=== PATIENT | female | born 1990 | race Caucasian/White ===

== ENCOUNTER 2018-06-10 06:50 | Inpatient (IN) | payer OTHER, SELFPAY ==
[2018-06-10 05:54] VITALS: BMI 28.7
[2018-06-10] MEDS: Lactated Ringers 1,000 ML 50 ML IV ×3 (07:00→10:30)
[2018-06-10 07:24] LABS: Hematocrit 37.7 % (37-47); Mean Corp Hgb Conc 34.5 g/gl (32-36); Mean Corpuscular Hgb 31.6 pg (27.0-32.0); Mean Corpuscular Volume 91.7 fL (81-99); Mean Platelet Vol. 9.4 fl (6.2-12.0); Platelet Count 271 K/mm3 (150-450); RBC Distribution Width CV 12.3 % (11.6-14.6); RBC Distribution Width SD 41.2 fl (35.1-43.9); Red Blood Count 4.11 M/mm3 (4.2-5.4); White Blood Count 9.4 K/mm3 (4.4-11.0)
[2018-06-10 07:26] LABS: Scan Indicated on CBC? Y/N NO
[2018-06-10] MEDS: fentaNYL-bupivacaine (epidural) 100 ML BAG EPIDURAL ×2 (07:50→12:07)
--- NOTE | 2018-06-10 08:44 | PCM.HP.OB ---
- Problem List (1) Rh negative state in antepartum period Status: Acute (2) Allergy-induced asthma Status: Acute Qualifiers: Asthma severity: mild Asthma persistence: intermittent Asthma complication type: uncomplicated Qualified Code(s): J45.20 - Mild intermittent asthma, uncomplicated History Date of Admission: 06/10/18 Final MOO: 06/13/18 Final MOO Source: US <20 weeks Gestational age: 39 Weeks and 4 Days History of this : This is a 27 year-old, G [1], P [0], at 39+4 weeks gestational age presenting to triage for labor assessment following onset of contractions last night. Contractions are now 2-5 minutes apart and becoming stronger. Patient denies SROM, VB or DFM. Allergies Anesthetics - Amide Type Allergy (Verified 06/10/18 06:08) Vomiting dental anesthesia Home Medications: Home Medications Albuterol Sulfate [Proair Hfa] 8.5 gm IH PRN PRN 06/10/18 Famotidine [Pepcid] 20 mg PO BID 06/10/18 Ferrous Sulfate [Slow Fe] 45 mg PO DAILY 06/10/18 Hydrocortisone 2.5% Crm 1 applicatio TOPICAL QHS 06/10/18 Levocetirizine Dihydrochloride [Xyzal] 5 mg PO DAILY 06/10/18 Montelukast [Singulair] 10 mg PO DAILY 06/10/18 Qeh163/FA/Omega3/Dha/Fish Oil [ Gummies] 2 each PO DAILY 06/10/18 Smoking Status: Never smoker Alcohol: None Number of Fetus(es): 1 Heart Tracing: FHT baseline 125, moderate variability, + accels, no decels TOCO Analysis: Ctx q 2-5 minutes, palpating moderately strong History Past Pregnancies: Past Pregnancies Delivery Date Name GA/Weeks Outcome Route Weight Infant Gender Labor Length Anesthesia Delivery Location Provider FOB Labs: O neg, Abs Neg, Rubella Immune, HIV Neg, HepBsAg Neg, Syphilis Neg, GBS Neg, H/H = 11.1/32.6, 1 hour GCT = 95, Urine Culture and Tox Neg, GC/CT Neg Expected Delivery Method: Spontaneous Vaginal Describe any other labor & delivery plans:: Patient plans for epidural pain management Number of Visits: 13 Review of Systems Constitutional: Denies: Chills, Fever, Weight Change HEENT: Denies: Head Aches, Sinus Congestion, Sinus Drainage Cardiovascular: Denies: Chest Pain, Palpitations Respiratory: Denies: Cough, Shortness of breath at rest, Sputum production Gastrointestinal: Denies: Abdominal Pain, Nausea, Vomiting Genitourinary: Denies: Dysuria Gynecological: Denies: Vaginal bleeding, Vaginal discharge Musculoskeletal: Denies: Joint Pain, Joint Tenderness Skin: Denies: Rash, Wounds Neurological: Denies: Numbness, Tingling, Focal weakness Psychiatric: Denies: Anxiety, Depression, Homicidal Ideations, Suicidal Ideations Hematologic/ Lymphatic: Denies: Easy Bruising, Easy Bleeding Physical Exam Vitals: See nursing assessment for vital signs - patient is afebrile and normotensive General: Alert, Oriented x3, No apparent distress HEENT: Atraumatic, Normocephalic. 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 Negative for: Vulvar lesions Estimated gestational size: Appropriate for gestational size Presentation: Cephalic Cervix Dilation (cm): 4 - Per RN exam - change from 3cm on initial exam Station: -2 Effacement (%): 90 Assessment/Plan All Active Problems Rh negative state in antepartum period (Acute) Allergy-induced asthma (Acute) This is a 27 year-old, G [1], P [0], at 39+4 weeks gestational age, Spontaneous Labor, Category I FHT. P: 1) Admit patient - start IV, draw admission labs, give LR fluid bolus 2) Epidural on request 3) Expectant management at this time 4) Dr. Slava MONTGOMERY OB back-up aware of admission and plan of care Didi Huerta APRN-BORA
[2018-06-10] MEDS: Famotidine 20 MG Tablet PO ×2 (11:09→23:47)
--- NOTE | 2018-06-10 11:48 | PCM.PN.OB ---
Patient Problems: Active and Suspected Problems Rh negative state in antepartum period (Acute) Allergy-induced asthma (Acute) Subjective: Patient comfortable with epidural. Patient reports some increased pelvic pressure. On last nursing exam patient was 8cm/90/0 and then 9/90/-0. Patient is requesting AROM to help with labor progression. Objective: FHT baseline 130, moderate variability, + accels, no decels Ctx q 2-3 minutes, palpate strong SVE = 9/100/+1 with BBOW, AROM for clear fluid. After AROM, SVE = 9/100/0 - Physical Exam Weight: 191 lb 12.835 oz Body Mass Index (BMI) 28.7 Intake and Output for Last 24 Hours 06/08/18 06/09/18 06/10/18 23:59 23:59 23:59 Intake Total 2180 / 2180 Output Total 175 / 175 Balance 2004 Laboratory Tests Past 24 Hrs 06/10/18 06/10/18 06/10/18 07:00 07:00 07:00 WBC 9.4 RBC 4.11 L Hgb 13.0 Hct 37.7 MCV 91.7 MCH 31.6 MCHC 34.5 RDW 12.3 RDW Differential 41.2 Plt Count 271 MPV 9.4 Blood Type O NEGATIVE Antibody Screen Not Reportable NEGATIVE Medical Necessity - Tobacco Use Smoking Status: Never smoker Assessment/Plan All Active Problems Rh negative state in antepartum period (Acute) Allergy-induced asthma (Acute) A: 27 y/o @ 39.4wks, Transition Stage of Labor, Category I FHT P: 1) Continue expectant management 2) Start pushing once complete with maternal urge 3) Anticipate 4) Dr. Pedersen updated re: patient status Didi Huerta APRN-BORA
[2018-06-10] MEDS: Ondansetron 4 MG/2 ML Vial IV (12:07)
[2018-06-10] MEDS: Oxytocin 30 units/NS 500 ml 30 UNITS/500 ML IV.SOLN 334 UNITS IV (14:35)
--- NOTE | 2018-06-10 14:56 | PCM.OB.VAG ---
- Problem List (1) Rh negative state in antepartum period Status: Acute (2) Allergy-induced asthma Status: Acute Qualifiers: Asthma severity: mild Asthma persistence: intermittent Asthma complication type: uncomplicated Qualified Code(s): J45.20 - Mild intermittent asthma, uncomplicated Vaginal Delivery Maternal Presentation: Active Labor Amniotic Membrane Rupture Type: Artificial Amniotic Fluid Description: Clear Final MOO: 06/13/18 Gestational age: 39 Weeks and 4 Days Date of Procedure: 06/10/18 Pre-Operative Diagnosis: Active Labor Post-Operative Diagnosis: of Viable Girl Surgery/ Procedure Performed: Spontaneous Vaginal Delivery Anesthesiologist: Thomas Taylor Type of Anesthesia: Epidural Description of Procedure: Patient found to be C/C/0 station, trial of pushing started and patient easily moved baby down to +2 station. Patient pushed uneventfully to over intact perineum at 1431. head delivered OA, restituted to MELVI then to LOT. Shoulders easily came spontaneously followed by body. Infant placed on maternal abdomen where baby was dried and stimulated. Mouth and nose bulb suctioned. Umbilical cord clamped and cut soon after per maternal preference. Infant with spontaneous cry and respirations, Apgars 8 and 9. weight pending. Cord blood collected. Placenta then delivered spontaneously via Young mechanism with shredded trailing membranes. Placenta intact with 3VC. FF midline 3FB below umbilicus to massage. IV pitocin infusing for active management of 3rd stage per protocol. EBL = 150cc. Upon inspection of vaginal vault, bilateral periurethral lacerations noted with good hemostasis. To allow for proper healing, Rt. side periurethral lac repaired in the usual fashion using 3-0 Rapide suture under epidural analgesia. Sponge and needle count correct. Vaginal sweep negative. Bonding and [id number] initiated. Patient unsure of feeding plans - will consult remediation consultant to assist with latch and to provide teaching. Didi Huerta PROFESSIONAL FIGHTER-CNM Presentation: Vertex Placental Delivery Description: Spontaneous Placenta Disposition: [facility] Cord Vessel Description: 3 Vessels Cord Entanglement: None Estimated Blood Loss: 150 Infant A gender: Female (1 minute): 8 (5 minute): 9 Episiotomy Description: None Laceration: Periurethral Extnsion/lac - Bilateral with extension to periclitoral area, 1st degree Medications given after delivery: IV Pitocin Complications: None
[2018-06-10] MEDS: Oxytocin 30 units/NS 500 ml 30 UNITS/500 ML IV.SOLN 167 UNITS IV (15:05)
--- NOTE | 2018-06-10 15:07 | PCM.DCVAG ---
Discharge Diet: No Restrictions Discharge Activity: Return to Normal Activity, May not drive while taking narcotic pain medications., May Shower May resume sexual activity in: 4-6 weeks Additional Activity Instructions:: Nothing in the vagina for 4-6 weeks. You may return to work/school in 6 weeks. Call your doctor if your incision/area has: Continuous Slow Oozing, Sudden Increased Bleeding, Increased Pain/ Swelling, Increased Redness, Foul Smelling Discharge Call your doctor if you observe: Fever of 101 or Higher, Inability to urinate, Inability to have a bowel movement, Using more than one pad per hour Additional Instructions: If you experience any of the following, contact your healthcare provider. Bleeding that soaks a pad every hour for 2 hours Fever 100.4 or higher Unrelieved incision or abdominal pain Swelling, redness, discharge or bleeding from your incision or episiotomy site Your incision begins to separate Problems urinating (including inability to urinate or burning while urinating). Visual changes Severe headache Flu-like symptoms Pain or redness in one of both of your breasts Pain, warmth, tenderness or swelling in your legs, especially the calf area Frequent nausea and vomiting Symptoms of depression or anxiety If you experience any of the following, call 911 or go to the nearest Emergency Room. Chest pain Problems breathing Seizure activity Partial or complete paralysis of a body part, slurred speech, weakness or drooping of the face, or a sudden inability to walk or hold your balance Allergies/Adverse Reactions: Allergies Anesthetics - Amide Type Allergy (Verified 06/10/18 06:08) Vomiting dental anesthesia Medications to take at Discharge Albuterol Sulfate [Proair Hfa] 8.5 gm IH Q4H PRN PRN 06/10/18 Famotidine [Pepcid] 20 mg PO BID 06/10/18 Ferrous Sulfate [Slow Fe] 45 mg PO DAILY 06/10/18 Hydrocortisone 2.5% Crm 1 applicatio TOPICAL QHS 06/10/18 Levocetirizine Dihydrochloride [Xyzal] 5 mg PO DAILY 06/10/18 Montelukast [Singulair] 10 mg PO DAILY 06/10/18 [id number]/FA/Omega3/Dha/Fish Oil [ Gummies] 2 each PO DAILY 06/10/18 Please Follow Up With: Didi Huerta CNM - 2 weeks and 6 week PP visits When: Call to make an appointment with your doctor in 6 weeks. If you had elevated Blood Pressure or 4th degree laceration you will need to be seen in 2 weeks. Primary Care Physician: Vivek James DO [Primary Care Provider] - Test Results: Test results from this visit will be discussed in further detail at your follow-up appointment, if applicable.
[2018-06-10 19:52] VITALS: BP 114/62; PULSE 79; RESP 18; TEMP 36.5
--- NOTE | 2018-06-10 23:00 | NURSING ---
Taking over pt care at this time.
[2018-06-10] MEDS: Montelukast 10 MG Tablet PO (23:48)
[2018-06-10] MEDS: Loratadine 10 MG Tablet 5 MG PO (23:48)
[2018-06-10 23:59] VITALS: BP 103/64; PULSE 77; RESP 18; TEMP 36.7; O2SAT 98
[2018-06-10] MEDS: Ibuprofen 600 MG Tablet PO (23:59)
[2018-06-11 04:40] VITALS: BP 113/69; PULSE 77; RESP 18; TEMP 36.6; O2SAT 96
[2018-06-11] MEDS: Ibuprofen 600 MG Tablet PO ×3 (06:57→20:39)
[2018-06-11 07:56] VITALS: BP 112/75; PULSE 72; RESP 16; TEMP 36.4; O2SAT 97
--- NOTE | 2018-06-11 08:41 | PCM.PN.OB ---
Patient Problems: Active and Suspected Problems Rh negative state in antepartum period (Acute) Allergy-induced asthma (Acute) Subjective: pain well controlled, average lochia, no N/V - Physical Exam General: Alert, Cooperative, No apparent distress Vital Signs Temp Pulse Resp BP Pulse Ox 97.6 F L 72 16 112/75 97 06/11/18 07:56 06/11/18 07:56 06/11/18 07:56 06/11/18 07:56 06/11/18 07:56 Oxygen Delivery Method Room Air Weight: 87 kg Body Mass Index (BMI) 28.7 Intake and Output for Last 24 Hours 06/09/18 06/10/18 06/11/18 23:59 23:59 23:59 Intake Total 3848 / 3848 Output Total 2525 / 2525 Balance 1323 / 1323 Laboratory Tests Past 24 Hrs 06/10/18 06/10/18 06/10/18 07:00 07:00 16:40 Blood Type O NEGATIVE Antibody Screen Not Reportable NEGATIVE Screen NEGATIVE Baby's Blood Type A POSITIVE Baby's EMMA POSITIVE Medical Necessity - Tobacco Use Smoking Status: Never smoker Assessment/Plan All Active Problems Rh negative state in antepartum period (Acute) Allergy-induced asthma (Acute) PPD#1 doing well likely home tomorrow, may d/c today if patient desires and ok w/ peds
[2018-06-11] MEDS: Senna/Docusate Sodium 1 Tablet PO (08:54)
[2018-06-11] MEDS: Famotidine 20 MG Tablet PO ×2 (10:02→17:08)
--- NOTE | 2018-06-11 12:05 | NURSING ---
8012 While rounding Mom states that pumping is still going well. Mom is interested in a home pump. Mom encouraged to call if any further questions or concerns with her pumping. Lotus ÁLVAREZ
--- NOTE | 2018-06-11 12:11 | NURSING ---
Agree with charting per ACole RN
[2018-06-11 13:50] VITALS: BP 108/65; PULSE 75; RESP 14; TEMP 36.2; O2SAT 99
--- NOTE | 2018-06-11 14:22 | NURSING ---
Pt. has a bilateral 1 degree periclitoral laceration that is well approximated with minimal swelling.
[2018-06-11] MEDS: Loratadine 10 MG Tablet 5 MG PO (17:08)
[2018-06-11 20:10] VITALS: BP 119/75; PULSE 69; RESP 16; TEMP 36.3; O2SAT 99
[2018-06-11] MEDS: Montelukast 10 MG Tablet PO (20:39)
[2018-06-12 02:10] VITALS: BP 99/49; PULSE 70; RESP 16; TEMP 36.4; O2SAT 95
--- NOTE | 2018-06-12 08:56 | PCM.PN.OB ---
Patient Problems: Active and Suspected Problems Rh negative state in antepartum period (Acute) Allergy-induced asthma (Acute) Subjective: Doing well per patient and nursing staff. Ambulating and taking PO without difficulty. Voiding and passing flatus. Motrin for pain. Pumping breast and bottle feeding. Planning D/C home today. Declines LARC. Denies headache, visual changes, chest pain, shortness of breath, increased vaginal bleeding/clots, or leg pain. - Physical Exam General: Alert, Oriented x3, Cooperative HEENT: Atraumatic, Normocephalic Lungs: Clear to auscultation, Normal air movement, No rhonchi, No wheeze Cardiovascular: Regular rate, Regular Rhythm, No murmurs Abdomen: Bowel Sounds Present, Non Tender, - - Fundus firm 2 below U Extremities: No edema, - - Joann's negative Psych/Mental Status: Normal Affect, Appropriate Vital Signs Temp Pulse Resp BP Pulse Ox 97.6 F L 70 16 99/49 L 95 06/12/18 02:10 06/12/18 02:10 06/12/18 02:10 06/12/18 02:10 06/12/18 02:10 Oxygen Delivery Method Room Air Weight: 191 lb 12.835 oz Body Mass Index (BMI) 28.7 Intake and Output for Last 24 Hours 06/10/18 06/11/18 06/12/18 23:59 23:59 23:59 Intake Total 3848 / 3848 Output Total 2525 / 2525 Balance 1323 / 1323 Medical Necessity - Tobacco Use Smoking Status: Never smoker Assessment/Plan All Active Problems Rh negative state in antepartum period (Acute) Allergy-induced asthma (Acute) A: PPD #2 P: 1) Routine and discharge instructions given. 2) Follow up in 2 weeks and 6 weeks for routine visits. 3) D/C home today.
[2018-06-12] MEDS: Ibuprofen 600 MG Tablet PO (09:14)
[2018-06-12 20:24] VITALS: BP 124/64; PULSE 76; RESP 18; TEMP 36.3; O2SAT 97
== END 2018-06-12 12:30 | disposition home or self-care (01) | DRG 775 ==
LOC: WPOUT 06:52
PROVIDERS: Obstetrics & Gynecology; Admitting Provider Obstetrics & Gynecology; Family Provider Student in an Organized Health Care Education/Training Program; PCP Student in an Organized Health Care Education/Training Program; Visit Provider Obstetrics & Gynecology
DX: O36.0130 Maternal care for anti-D [Rh] antibodies, third trimester, not applicable or unspecified (principal); O99.52 Diseases of the respiratory system complicating childbirth; J45.998 Other asthma; O71.82 Other specified trauma to perineum and vulva; Z3A.39 39 weeks gestation of pregnancy; Z37.0 Single live birth
CPT/HCPCS: 59050; 85027; 85461; 86850; 86900; 90384; 99218; J7120; G0378; J2405; J2790

== ENCOUNTER → 2020-09-30 08:47 | Outpatient (CLI) | payer OTHER, SELFPAY ==
[2020-09-30 09:15] LABS: Internal QC Validated? YES +Cl - CLEAR BKGD; Pregnancy, Serum, hCG Quali. NEGATIVE Negative
[2020-09-30 09:18] LABS: Anion Gap 6 (5-15); BUN 14 mg/dL (7-18); BUN/Creat Ratio 15.8 RATIO (10-20); Calcium,Total 8.9 mg/dL (8.5-10.1); Chloride 103 mmol/L (98-107); Creatinine, Serum 0.89 mg/dL (0.55-1.02); EST Glomerular Filtration Rate 79 mL/min (>60); Est Glom Filt Rate - Afr Amer 95 mL/min (>60); Glucose 83 mg/dL (74-106); Potassium 3.9 mmol/L (3.5-5.1); Sodium Level 138 mmol/L (136-145)
--- NOTE | 2020-09-30 12:38 | PCM.TILTTABL ---
- Summary Pre Test Resting HR: 76 Pre Test Resting BP: 102/51 Minimum Test HR: 70 Maximum Test HR: 100 Minimum Test BP: 0/0 Reason for Test Termination: Syncope Physician Tilt Table Report - Patient's Physicians Primary Care Physician: Vivek James Manager [employer]: Roman Lao Indications/Diagnosis: Syncope Procedure Comments: The patient was brought to the noninvasive lab for evaluation. The heart rate was noted to be 76 bpm with an initial blood pressure 102/51 mmHg. The patient was put in the upright tilt table position. Patient was set up for 20 minutes. Heart rate remained stable and the patient started complaining of feeling hot feeling flushed and blood pressure dropped and patient passed out. Heart rate really did not change. Afterwards the patient was recovered with IV fluids with blood pressures peaking at 114 and the lowest heart rate being 71 bpm. Summary: Inconclusive tilt table test with evidence of syncope. No features of vasodepressor or postural orthostatic tachycardia noted.
[2020-09-30 12:45] VITALS: BP 0/0; BP 102/51
== END ==
PROVIDERS: PCP Student in an Organized Health Care Education/Training Program; Referring Provider Student in an Organized Health Care Education/Training Program; Visit Provider Student in an Organized Health Care Education/Training Program
DX: R42 Dizziness and giddiness (principal); R00.0 Tachycardia, unspecified; I49.8 Other specified cardiac arrhythmias
CPT/HCPCS: 36415; 80048; 84703; 93660; J7040; A4216

== ENCOUNTER 2021-02-08 10:32 | Day surgery (SDC) | payer OTHER, SELFPAY ==
[2021-01-10 15:43] VITALS: BMI 27.1
[2021-02-03 13:14] VITALS: BMI 27.3
[2021-02-07 11:59] LABS: Hematocrit 42.8 % (37-47); Hemoglobin 14.2 g/dL (12.0-15.0); Mean Corp Hgb Conc 33.2 g/dL (32-36); Mean Corpuscular Hgb 30.3 pg (27.0-32.0); Mean Corpuscular Volume 91.3 fL (81-99); Mean Platelet Vol. 9.3 fl (6.2-12.0); Platelet Count 380 K/mm3 (150-450); RBC Distribution Width CV 11.9 % (11.6-14.6); RBC Distribution Width SD 39.5 fl (35.1-43.9); Red Blood Count 4.69 M/mm3 (4.2-5.4); White Blood Count 6.4 K/mm3 (4.4-11.0)
[2021-02-08] VITALS (7 sets, daily range): BP systolic 92–113; BP diastolic 60–83; PULSE 63–71; RESP 16–18; TEMP 36.2–36.8; O2SAT 98–100; BMI 27.2
--- NOTE | 2021-02-08 09:25 | PCM.HPOB.BLA ---
- Problem List (1) Abnormal uterine bleeding Status: Chronic Comment: breakthrough bleeding on latrell/apri, nl labs and US at [facility]. failed two ocps and still persistent recommend d and c hysteroscopy History and Physical Date of Admission: 02/08/21 Intake Vital Signs 01/07/21 Height 5 ft 3 in 01/07/21 Weight: 235 lb 01/07/21 BMI 41.6 Intake Visit Reasons: AUB, ref by Dr. Amato Chief Complaint: AUB Communications Strategist Required: No Is patient in pain?: No Allergies pregabalin [From Lyrica] Allergy (Severe, Verified 01/07/21 14:59) Shortness of breath Steroids Allergy (Intermediate, Uncoded 01/07/21 14:59) Vomiting Medications fentanyl 25 mcg/hr transdermal patch 1 patch TRANSDERMAL Q72H 02/21/18 [History Confirmed 01/07/21] hydrocodone 7.5 mg-acetaminophen 325 mg tablet 1 tab PO TID PRN tab 02/21/18 [History Confirmed 01/07/21] incontinence pad, liner, disp See Dose Instructions .ROUTE .MEDSUPPLY #200 ea 02/21/18 [Rx Confirmed 01/07/21] multivitamin 1 tab PO QAM 02/21/18 [History Confirmed 01/07/21] tizanidine 4 mg capsule 4 mg PO TID PRN 02/21/18 [History Confirmed 01/07/21] cholecalciferol (vitamin D3) 125 mcg (5,000 unit) capsule 5,000 unit PO QDAY 02/26/18 [History Confirmed 01/07/21] ferrous sulfate 324 mg (65 mg iron) tablet,delayed release 324 mg PO QDAY tab 02/26/18 [History Confirmed 11/03/20] melatonin 5 mg capsule mg PO cap 08/26/18 [History Confirmed 01/07/21] blood pressure monitor See Rx Instructions .ROUTE .MEDSUPPLY #1 ea 08/06/19 [Rx Confirmed 11/03/20] fluorometholone 0.1 % eye drops,suspension 1 drp OPHTHALMIC Q12H ml 08/06/19 [History Confirmed 01/07/21] gabapentin 300 mg capsule 300 mg PO TID 08/06/19 [History Confirmed 01/07/21] cyclosporine 0.05 % eye drops 1 drp OPHTHALMIC Q12H 01/27/20 [History Confirmed 01/07/21] furosemide 20 mg tablet See Rx Instructions .ROUTE .COMPLEX #90 tablet 05/04/20 [Rx Confirmed 11/03/20] potassium chloride 10 mEq tablet,extended release 10 meq PO QDAY #90 tab 05/26/20 [Rx Confirmed 01/07/21] pravastatin 40 mg tablet 40 mg PO QDAY #90 tab 06/01/20 [Rx Confirmed 01/07/21] verapamil 120 mg 24 hr capsule,extended release 120 mg PO QDAY #90 cap 10/21/20 [Rx Confirmed 01/07/21] fesoterodine 4 mg tablet,extended release 24 hr 4 mg PO DAILY 11/03/20 [History Confirmed 01/07/21] duloxetine 60 mg capsule,delayed release 120 mg PO QDAY #180 cap 11/19/20 [Rx Confirmed 01/07/21] Is last menstrual period known: No Post menopausal: Yes Patient : No : No PFSH Medical History Obesity (Chronic) Type 2 diabetes mellitus without complications (Chronic) Non-ST elevation (NSTEMI) myocardial infarction (Chronic) Hyperlipidemia (Chronic) Hypertension (Chronic) Frequent UTI (Acute) Back pain (Chronic) Obstructive sleep apnea (Chronic) Osteoarthritis (Chronic) Back problem (Inactive) Heart disease (Inactive) High blood pressure (Inactive) High cholesterol (Inactive) High triglycerides (Inactive) Rheumatoid arthritis (Inactive) Surgical History History of bilateral cataract extraction (Chronic) History of cholecystectomy (Chronic) History of gastric bypass (Chronic ~02/2014) History of tonsillectomy (Chronic) Family History Brother Alcohol abuse Myocardial infarction Father Angina pectoris Arthritis Myocardial infarction Heart disease Hypertension Mother Arthritis Social History (Updated 01/08/21 @ 05:[address] Zaria Sampson MD) Smoking Status: Former smoker pack-years: 10 alcohol intake: never substance use type: does not use caffeine: Yes what type of physical activity do you participate in: none seatbelt use: always do you feel safe at home: Yes additional social history: - retired HPI AUB, ref by Dr. Amato: Details: JACQUELINE SINGER is a 73 year old who presents for referral by Dr Amato for postmenopausal bleeding. she had a 12 day episode of significant bleeding that stopped and she hasn't had any since. she denies any cramping or abnormal discharge. she had an ultrasound that shows 2 mm lining but heterogenous. Female Reproductive History Questions: Metorrhagia: Yes Menopausal Symptoms: No night sweats Pregancy History 3 Elective abortions Hx Para 2 Spontaneous abortions 1 Hx # Term Pregnancies Ectopic pregnancies Hx # Pregnancies Multiple births # of living children 2 Past Pregnancies Del. Date Name GA/Weeks Outcome Route Bth Weight Gen Labor Lgth Anesthesia Del Locatn Provider FOB Unknown 1973 [facility] live - full term Unknown 1977 [facility] live - full term ROS Const Constitutional: Denies fatigue, night sweats, weight gain or weight loss ENT ENT: Reports system reviewed and no additional complaints, except as docu Cardio Card: Denies chest pain Resp Resp: Denies cough or dyspnea GI GI: Reports as per HPI; denies constipation, nausea or vomiting : Reports as per HPI; denies nipple discharge, vaginal discharge, vaginal dryness, vaginal odor or vaginal itching Musc Musc: Denies joint pain, back pain or muscle weakness Skin Skin/Breast: Denies hair loss, change in hair, dry skin, breast lump, breast pain, breast skin changes or nipple discharge Neuro Neuro: Reports system reviewed and no additional complaints, except as docu Psych Psych: Reports system reviewed and no additional complaints, except as docu Endo Endo: Denies cold intolerance, excessive sweating, heat intolerance or increased thirst Jerel/Lymph Hematologic/Lymphatic: Denies easy bleeding, Denies easy bruising, Denies enlarged lymph nodes Exam Const General: cooperative, healthy appearing, comfortable, no acute distress, well developed Orientation: alert [facility] Head: normal to inspection, normocephalic Ears: hearing grossly normal bilaterally, external ears normal Nose: external nose normal, nares normal Face and sinus: normal facial exam Neck Neck: normal visual inspection, no lymphadenopathy Thyroid: thyroid normal Chest Chest palpation & inspection: normal inspection of the chest Resp Effort & Inspection: normal respiratory effort Auscultation: clear to auscultation bilaterally Cardio Rate: regular rate Rhythm: regular rhythm Heart Sounds: S1 normal, S2 normal GI Inspection: normal to inspection, non-distended Palpation: soft, no hepatosplenomegaly Musc Other: gross motor intact no deficits, full bilateral strength Skin General: no rashes or lesions noted Neuro General: alert, awake, moves all extremities, no focal motor deficits Motor: muscle tone normal throughout Extrem General: normal to inspection, no pedal edema Psych Appearance: grossly normal Mental Status: mental status grossly normal Affect: normal affect Speech and Movement: speech and movement normal Assessment & Plan Problems 1. Type 2 diabetes mellitus without complications E11.9 2. Postmenopausal bleeding N95.[address] amato. recommend d and c hysteroscopy. Plan After discussing the patient's diagnosis and treatment plan options, patient wishes to proceed with surgical management. I have discussed with the patient the risks, benefits, and alternatives of the procedure which include but are not limited to risks of anesthesia, bleeding, infection, possible damage to bowel, bladder, or surrounding vasculature which could lead to additional surgery to evaluate any complications. Patient agrees to procedure and wishes to proceed. ACOG/uptodate references given for additional information regarding procedure. Coding Level of Care Code Off vis,new,level 4 Diagnoses Type 2 diabetes mellitus without complications E11.9 Postmenopausal bleeding N95.0 UPDATE- I have seen the patient and performed any clinically relevant updates to the history and physical exam. Zaria Sampson MD
[2021-02-08 11:08] LABS: Internal QC Validated? YES +Cl - CLEAR BKGD; Pregnancy, Urine Negative Negative
[2021-02-08] MEDS: Lactated Ringers 1,000 ML 100 ML IV (11:18)
--- NOTE | 2021-02-08 12:00 | EMB_PTH ---
PATIENT: SINAN DUKE LOC: [facility] U#:[id number] AGE/SX: 30/F ROOM: RE02/08/[address]: Dr. Zaria Sampson MD : 1990 BED: DIS: 02/08/2021 SPEC #: [id number] RECD: 02/08/21 14:42 STATUS: CHEN REElis #: [id number] RADHA: 02/08/21 12:[address]: Zaria Sampson DEPT: SURGICAL PATHOLOGY RECD BY: Juliette Meyer ENTERED: 02/09/21 11:00 SP TYPE: ENDOM BX/C EDU DR: Dr. Vivek James DO Tissues: Endometrium, NOS Procedures: Surgery Specimen Level IV HEADER OPERATION: Hysteroscopy, dilation and curettage PRE-OP DIAGNOSIS: Abnormal uterine bleeding TISSUE SUBMITTED: Endometrial curettings MICROSCOPIC DIAGNOSIS Endometrium, curettings: Proliferative endometrium with minimal disorder and focal glandular breakdown. Strips of benign superficial endocervix. AM:milena 02/10/2021 MICROSCOPIC DESCRIPTION Slides are reviewed. GROSS DESCRIPTION Received in fixative is one container labeled with the patient's name and designated endometrial curettings. The specimen consists of multiple irregular fragments of light to dark rivas soft tissue that in aggregate measure 2.5 x 2 x 0.2 cm. The specimen is totally submitted in one cassette. / AM:milena 02/09/21 TC:5 CPT: 92146
[2021-02-08] MEDS: Lidocaine 1% (30 ml sdv) 30 ML Vial (13:05)
--- NOTE | 2021-02-08 13:13 | DCINST_ITS ---
Discharge Diet: No Restrictions - Increase fluid intake for the next 48 hours. Discharge Activity: Return to Normal Activity, May Drive - when you are no longer taking narcotic pain medications., May Shower, May Take a Tub Bath - in 7 days Additional Activity Instructions:: Ambulate often the next week after surgery. Nothing in the vagina for 5 days. Call your doctor if your incision/area has: Continuous Slow Oozing, Sudden Increased Bleeding, Increased Pain/ Swelling, Increased Redness, Foul Smelling Discharge Call your doctor if you observe: Fever of 101 or Higher Allergies/Adverse Reactions: Allergies No Known Allergies Allergy (Verified 02/08/21 11:09) Medications to take at Discharge Montelukast [Singulair] 10 mg PO DAILY 06/10/18 desogestrel 0.15 mg-ethinyl estradiol 0.03 mg tablet 1 tablet PO QDAY #28 tablet 12/02/20 fexofenadine 180 mg tablet 180 mg PO DAILY 12/02/20 Albuterol Inhaler [Ventolin Hfa (SP)] 1 - 2 puff INHALATION Q6H PRN PRN 02/01/21 Fluticasone 110 Mcg [Flovent (SP)] 1 puff INHALATION QHS 02/01/21 Pnv No.95/Ferrous Fum/Folic AC [ Caplet] 1 each PO DAILY 02/01/21 Orders to be completed after discharge: ,Urine Time Frame: 02/01/21, Facility: [facility], Location: Laboratory Primary Care Physician: Vivek James DO [Primary Care Provider] - Test Results: Test results from this visit will be discussed in further detail at your follow- up appointment, if applicable. Please Follow Up With: Zaria Sampson MD - [phone]
--- NOTE | 2021-02-08 13:13 | DCINST_ITS ---
Discharge Diet: No Restrictions Discharge Activity: Return to Normal Activity, May Shower, May Take a Tub Bath Allergies/Adverse Reactions: Allergies No Known Allergies Allergy (Verified 02/08/21 11:09) Medications to take at Discharge Montelukast [Singulair] 10 mg PO DAILY 06/10/18 desogestrel 0.15 mg-ethinyl estradiol 0.03 mg tablet 1 tablet PO QDAY #28 tablet 12/02/20 fexofenadine 180 mg tablet 180 mg PO DAILY 12/02/20 Albuterol Inhaler [Ventolin Hfa (SP)] 1 - 2 puff INHALATION Q6H PRN PRN 02/01/21 Fluticasone 110 Mcg [Flovent (SP)] 1 puff INHALATION QHS 02/01/21 Pnv No.95/Ferrous Fum/Folic AC [ Caplet] 1 each PO DAILY 02/01/21 Orders to be completed after discharge: ,Urine Time Frame: 02/01/21, Facility: [facility], Location: Laboratory Primary Care Physician: Vivek James DO [Primary Care Provider] - Test Results: Test results from this visit will be discussed in further detail at your follow- up appointment, if applicable. Please Follow Up With: Zaria Sampson MD - [phone]
--- NOTE | 2021-02-08 13:13 | OP.PCM_ITS ---
Problem List (1) Abnormal uterine bleeding Status: Chronic Comment: breakthrough bleeding on latrell/apri, nl labs and US at [facility]. failed two ocps and still persistent recommend d and c hysteroscopy Report of Operation Date of Procedure: 02/08/21 Pre-Operative Diagnosis: Abnormal uterine bleeding Post-Operative Diagnosis: Same Surgery/Procedure Performed:: D&C hysteroscopy Description of Surgical Findings:: Thickened lining no gross abnormalities Type of Anesthesia:: Local MAC Special Medications: None Specimen's removed: EMC Drains: none Estimated Blood Loss (mL): 10 Fluids Replaced: Crystalloid Description of Procedure: Patient was prepped and draped in a normal sterile fashion under MAC anesthesia. A weighted speculum was placed in the vagina and the anterior lip of the cervix was grasped with a single-tooth tenaculum. A paracervical block was placed with 1% lidocaine. Cervix was progressively dilated to allow passage of a 5 mm hysteroscope. The lining was fully visualized and noted to have thickened lining with no significant gross abnormalities or lesions present. Uterine sounded to 9 cm. Curettage was performed and significant tissue removed, sent to pathology. All instruments were removed from the vagina and excellent hemostasis was noted. Patient was awoken and taken to recovery in stable condition. Grafts/Implants Used: none - Complications none - Admit VTE Documentation VTE Present on Admission: No VTE Mechan Device Prophylaxis: SCD's Multi Select Codes - Urinary/Genital Urinary/Genital CPT Codes: 33428 Hysteroscopy,EMC, Polypectomy
== END 2021-02-08 14:53 | disposition home or self-care (01) ==
LOC: SDC 10:32 → AC 10:34
PROVIDERS: Anesthesiology; PCP Student in an Organized Health Care Education/Training Program; Referring Provider Obstetrics & Gynecology; Visit Provider Obstetrics & Gynecology
PROC: 0UDB8ZZ Extraction of Endometrium, Via Natural or Artificial Opening Endoscopic (ICD-10-PCS; CPT 58558; principal; 2021-02-08 11:50)
DX: N95.0 Postmenopausal bleeding (principal); I25.2 Old myocardial infarction; E78.5 Hyperlipidemia, unspecified; E11.9 Type 2 diabetes mellitus without complications; J45.909 Unspecified asthma, uncomplicated; E66.9 Obesity, unspecified; Z68.41 Body mass index [BMI] 40.0-44.9, adult; Z20.822 Contact with and (suspected) exposure to COVID-19; Z79.82 Long term (current) use of aspirin; Z79.899 Other long term (current) drug therapy; Z87.891 Personal history of nicotine dependence
CPT/HCPCS: 00952; 58558; 36415; 81025; 85027; 86850; 86900; 86901; 87426; 88305; C9803; J7120; J2405

== ENCOUNTER → 2021-05-26 10:18 | Outpatient (CLI) | payer OTHER, SELFPAY ==
[2021-05-26 09:28] VITALS: BMI 27.2
[2021-05-26 10:45] LABS: Absolute Lymphocyte Count 1.03 X10^3/uL (0.83-4.51); Absolute Neutrophil Count 2.9 X10^3/uL (2.0-7.7); Basophil# 0.03 X10^3/uL; Basophil% 0.6 % (0-1); Eosinophil# 0.43 X10^3/uL; Eosinophils% 8.5 % (0-5); Hemoglobin 13.4 g/dL (12.0-15.0); Lymphocyte # 1.03 X10^3/ul (0.83-4.51); Lymphocyte % 20.4 % (19-41); Mean Corp Hgb Conc 34.4 g/dL (32-36); Mean Corpuscular Hgb 30.7 pg (27.0-32.0); Mean Corpuscular Volume 89.2 fL (81-99); Monocyte# 0.61 X10^3/uL; Monocyte% 12.1 % (0-10); NRBC Flagged by Analyzer 0 % (0-5); Neutrophil # 2.93 X10^3/uL (2.7-7.7); Neutrophil % 58.2 % (47-70); Platelet Count 297 K/mm3 (150-450); RBC Distribution Width CV 12.1 % (11.6-14.6); RBC Distribution Width SD 39.8 fl (35.1-43.9); Red Blood Count 4.37 M/mm3 (4.2-5.4)
[2021-05-26 11:48] LABS: HIV - WCH Non-Reactive (Nonreactive); Hepatitis B Surface Antigen Non-Reactive (Nonreactive); Hepatitis C Antibody Non-Reactive (Nonreactive); Rubella IgG Reactive (Nonreactive); Syphilis Antibodies Non-reactive
[2021-05-26 13:47] LABS: Amphetamine Urine VISTA NEGATIVE (<1000 ng/mL); Barbiturate Urine VISTA NEGATIVE (< 200 ng/mL); Benzodiazepine Urine VISTA NEGATIVE (< 200 ng/mL); Cocaine Urine VISTA NEGATIVE (< 300 ng/mL); Ecstacy Urine VISTA NEGATIVE (< 500 ng/mL); Methadone Urine VISTA NEGATIVE (< 300 ng/mL); PCP Urine VISTA NEGATIVE (< 25 ng/mL); THC Urine VISTA NEGATIVE (< 50 ng/mL); Vista UDS pH Range 7
[2021-05-28 03:07] LABS: Chlamydia By Nucleic Acid AMP Negative (Negative)
[2021-05-28 08:33] LABS: Gonococcus By Nucleic Acid AMP Negative (Negative)
[2021-05-31 09:56] LABS: HPV APTIMA, High Risk Negative (Negative)
== END ==
PROVIDERS: PCP Student in an Organized Health Care Education/Training Program; Referring Provider Obstetrics & Gynecology; Visit Provider Obstetrics & Gynecology
DX: O09.899 Supervision of other high risk pregnancies, unspecified trimester (principal); O46.90 Antepartum hemorrhage, unspecified, unspecified trimester; O99.519 Diseases of the respiratory system complicating pregnancy, unspecified trimester; J30.2 Other seasonal allergic rhinitis; J45.20 Mild intermittent asthma, uncomplicated; Z67.91 Unspecified blood type, Rh negative; Z3A.00 Weeks of gestation of pregnancy not specified
CPT/HCPCS: 36415; 80307; 85025; 86703; 86762; 86780; 86803; 86850; 86900; 86901; 87086; 87340; 87491; 87591; 87624; 88175; G0145

== ENCOUNTER → 2021-10-11 08:20 | Outpatient (CLI) | payer OTHER, SELFPAY ==
[2021-10-11 08:42] LABS: Absolute Lymphocyte Count 1.26 X10^3/uL (0.83-4.51); Absolute Neutrophil Count 8.6 X10^3/uL (2.0-7.7); Basophil# 0.04 X10^3/uL; Basophil% 0.4 % (0-1); Eosinophil# 0.28 X10^3/uL; Eosinophils% 2.5 % (0-5); Hematocrit 32.1 % (37-47); Lymphocyte # 1.26 X10^3/ul (0.83-4.51); Lymphocyte % 11.4 % (19-41); Mean Corp Hgb Conc 34.3 g/dL (32-36); Mean Corpuscular Hgb 31.4 pg (27.0-32.0); Mean Corpuscular Volume 91.7 fL (81-99); Mean Platelet Vol. 8.9 fl (6.2-12.0); Monocyte# 0.81 X10^3/uL; Monocyte% 7.3 % (0-10); NRBC Flagged by Analyzer 0 % (0-5); Neutrophil % 77.7 % (47-70); Platelet Count 299 K/mm3 (150-450); RBC Distribution Width CV 12.7 % (11.6-14.6); RBC Distribution Width SD 41.7 fl (35.1-43.9); White Blood Count 11.1 K/mm3 (4.4-11.0)
[2021-10-11 08:51] LABS: Glucose Challenge Gest 1H 50g 90 mg/dL (70-140)
== END ==
PROVIDERS: PCP Student in an Organized Health Care Education/Training Program; Referring Provider Obstetrics & Gynecology; Visit Provider Obstetrics & Gynecology
DX: O09.899 Supervision of other high risk pregnancies, unspecified trimester (principal); Z67.91 Unspecified blood type, Rh negative; Z3A.00 Weeks of gestation of pregnancy not specified
CPT/HCPCS: 36415; 82950; 85025; 86850; 86900; 86901

== ENCOUNTER 2021-12-08 09:13 | Outpatient (CLI) | payer BC, SELFPAY | END 2021-12-08 23:59 | disposition home or self-care (01) | LOC: LABSPEC 12-09 09:15 | PROVIDERS: PCP Student in an Organized Health Care Education/Training Program; Visit Provider Obstetrics & Gynecology | DX: Z36.85 Encounter for antenatal screening for Streptococcus B (principal) | CPT/HCPCS: 87081 ==

== ENCOUNTER 2021-12-27 11:15 | Inpatient (IN) | payer BC, SELFPAY ==
[2021-12-27] VITALS (30 sets, daily range): BP systolic 127–141; BP diastolic 65–86; PULSE 60–156; RESP 16; TEMP 36.3–36.9; O2SAT 82–100; BMI 29.8
[2021-12-27] MEDS: Lactated Ringers 500 ML 999 ML IV (11:55)
[2021-12-27] MEDS: Lactated Ringers 1,000 ML 50 ML IV (11:55)
[2021-12-27 11:57] LABS: Absolute Lymphocyte Count 1.32 X10^3/uL (0.83-4.51); Absolute Neutrophil Count 6.8 X10^3/uL (2.0-7.7); Basophil# 0.03 X10^3/uL; Basophil% 0.3 % (0-1); Eosinophil# 0.21 X10^3/uL; Eosinophils% 2.3 % (0-5); Hemoglobin 11.2 g/dL (12.0-15.0); Lymphocyte # 1.32 X10^3/ul (0.83-4.51); Lymphocyte % 14.5 % (19-41); Mean Corp Hgb Conc 33.9 g/dL (32-36); Mean Corpuscular Hgb 30.6 pg (27.0-32.0); Mean Corpuscular Volume 90.2 fL (81-99); Mean Platelet Vol. 10.5 fl (6.2-12.0); Monocyte# 0.69 X10^3/uL; Monocyte% 7.6 % (0-10); NRBC Flagged by Analyzer 0 % (0-5); Neutrophil % 74.8 % (47-70); Platelet Count 306 K/mm3 (150-450); RBC Distribution Width CV 12.6 % (11.6-14.6); RBC Distribution Width SD 41.1 fl (35.1-43.9); Red Blood Count 3.66 M/mm3 (4.2-5.4); White Blood Count 9.1 K/mm3 (4.4-11.0)
[2021-12-27] MEDS: fentaNYL-bupivacaine (epidural) 100 ML BAG EPIDURAL (12:51)
[2021-12-27] MEDS: Oxytocin 30 units/NS 500 ml 30 UNITS/500 ML IV.SOLN 334 UNITS IV (13:45)
--- NOTE | 2021-12-27 14:16 | HP.PCM_ITS ---
History and Physical Date of Admission: 12/27/21 Intake Visit Reasons: 39 WK OB Allergies No Known Allergies Allergy (Verified 12/27/21 10:10) Medications albuterol sulfate 90 mcg/actuation breath activated powder inhaler 2 inh INHALATION Q6H PRN 05/10/21 [History Confirmed 12/27/21] prenat.vits,jarret,[id number] 1 tab PO DAILY 05/10/21 [History Confirmed 12/27/21] triamcinolone acetonide 55 mcg nasal spray aerosol 1 spray INTRANASAL DAILY 05/10/21 [History Confirmed 12/27/21] fluticasone propionate 110 mcg/actuation HFA aerosol inhaler 2 puff INHALATION BID #12 g 07/19/21 [Rx Confirmed 12/27/21] famotidine 20 mg tablet 20 mg PO DAILY #30 tab 08/15/21 [Rx Confirmed 12/27/21] Last Menstral Period: 03/25/21 Zika: Zika virus screening: Negative : No PFSH PFSH Medical History (Updated 12/27/21 @ 12:[address] Zaria Sampson MD) Seasonal allergies Superficial varicosities Surgical History H/O dilation and curettage S/P wisdom tooth extraction Family History Mother Blood clot in vein Sister Lupus Social History adopted: No household members: spouse and children number of children: 1 Smoking Status: Never smoker alcohol intake: never substance use type: does not use caffeine: Yes what type of physical activity do you participate in: other details: crossfit frequency: 5-6 times per week seatbelt use: always do you feel safe at home: Yes additional social history: - Breezy Pregancy History 2 Elective abortions Hx Para 1 Spontaneous abortions Hx # Term Pregnancies Ectopic pregnancies Hx # Pregnancies Multiple births # of living children 1 Past Pregnancies Del. Date Name GA/Weeks Outcome Route Bth Weight Infant Gen Labor Lgth Anesthesia Del Locatn Provider FOB 06/10/18 Rosabelle 39 live - full term 6# 11oz Female 9 hr epidural [facility] [employer] Sang HPI 39 WK OB Details: SINAN ANGEL is a 31 year old who presents for routine OB visit. is IAL 5 cm with regular ctx OB Visit MOO Calculator Estimated Delivery Date Method Current WG Current Estimate 12/30/21 LMP (Certain) 39w 4d Expected Delivery Route/Plan Labor Preferences- labor support person: Adam labor intervention preferences: open, prefers to have baby wiped off first prior to skin to skin, open to delayed fine pain management options preferred: epidural cut cord/dad catch: no : yes PP control planned: discussed possible routes of delivery and associated risks: [] special requests: [] Specific Issue/Plans Covid status: non immune, counseled regarding risk of covid in vs vaccination and declined vaccination Flu vaccine: declined Tdap vaccine: given Rhogam: given LARC form signed:declined movement and labor precautions reviewed. Problem list reviewed and updated with the most current plan of care details and appropriate orders placed. Relevant counseling for the gestational age provided. Continue routine care and follow up unless otherwise noted in visit notes/problem list details Initial Weight: 180 lb Date EGA Weight BP Urine Prot Glucose FHR FuHt Pres Dilation Effaced St Visit Note 05/26/21 8w 6d 180 lb (+0 oz) 112/62 170 SM- CRL cons with lmp 06/20/21 12w 3d 179 lb 8 oz (-8 oz) 120/84 Negative Negative 160 GP - no cramping or bleeding. Anatomy scan ordered. 07/19/21 16w 4d 180 lb (+0 oz) 100/68 Negative Negative 160 SM- no vb lof started on flovent 08/15/21 20w 3d 182 lb (+2 lb) 102/64 Negative Negative 150 SM- asthma stable started on pepcid 09/13/21 24w 4d 185 lb (+5 lb) 112/70 Negative Negative 143 JV- no lof, vaginal bleeding, or dec fm. plan for gct and rhogam next visit. 10/11/21 28w 4d 190 lb (+10 lb) 110/80 140 JV- no lof, vaginal bleeding, or dec fm. pt has suspected right inguinal hernia, binding discussed. WIll refer to vein specialist for varicosities. 10/25/21 30w 4d 190 lb 4 oz (+10 lb 4 oz) 122/74 Negative Negative 147 32 JV- no lof, vaginal bleeding, or dec fm. 11/11/21 33w 0d 191 lb 8 oz (+11 lb 8 oz) 120/70 Negative Negative 140 33 SM- no vb lof good fm no regualr ctx 11/21/21 34w 3d 192 lb (+12 lb) 116/68 Negative Negative 140 34 Sm- no vb lof good fm no regular ctx 12/08/21 36w 6d 198 lb (+18 lb) 106/68 Negative Negative 140 35 Cephalic 3 60 -1 SM- no vb lof good fm no regular ctx gbs done, discussed growth us if low 12/13/21 37w 4d 197 lb (+17 lb) 138/80 Negative Negative 130 36 Cephalic SM- no vb lof good fm no reuglar ctx 12/21/21 38w 5d 197 lb 6 oz (+17 lb 6 oz) 132/84 Negative Negative 135 37 Cephalic 3 70 -1 JV- no lof ,vaginal bleeding, or dec fm. labor precautions discussed. 12/27/21 39w 4d 193 lb 6 oz (+13 lb 6 oz) 118/76 Negative Negative 135 5 80 0 SM- co regular ctx since this morning, admit to l and d ACOG First Trimester First Trimester: Second Trimester Second Trimester: Signs and Symptoms of Labor, Selecting a care provider, Reproductive Life Planning & Contreception, Care Planning, Tobacco Cessation, Depression/Anxiety and Intimate Partner Violence Third Trimester Third Trimester: Pain Management Plans, Labor support person(s), Immediate Larc, Movement Monitoring and Feeding Yes ; Discussed Trial of Labor after Counseling and Discussed Circumcision preference Diagnostics Diagnostics Diagnostics: Blood Type O NEGATIVE Antibody Screen NEGATIVE Glucose 1 Hr 50 gm 90 mg/dL (70-140) Hgb 11.2 g/dL (12.0-15.0) L Hct 33.0 % (37-47) L Details: HIV: Urine Culture: Sequential Screen: NIPT Screen: ROS Const Reports system reviewed and no additional complaints, except as documented Card Reports system reviewed and no additional complaints, except as documented Resp Reports system reviewed and no additional complaints, except as documented GI Reports system reviewed and no additional complaints, except as documented and Reports nausea Reports system reviewed and no additional complaints, except as documented Musc Reports system reviewed and no additional complaints, except as documented Exam Const General: cooperative, healthy appearing, comfortable and anxious HENMN Head: normal to inspection Nose: external nose normal Face and sinus: normal facial exam Neck Neck: normal visual inspection, full ROM and no lymphadenopathy Thyroid: thyroid normal Chest Chest palpation & inspection: normal inspection of the chest Resp Effort & Inspection: normal respiratory effort GI Inspection: normal to inspection Palpation: soft and other (gravid uterus) Other: infant vertex and appropriate size for gestational age Other: Cervical Exam: Extrem General: pedal edema Results POC Urinalysis 2 Dip (Clinic) Office Urine Glucose Negative Last Edit by Barbie Angel on 12/27/21 10:11 Office Urine Protein Negative Last Edit by Barbie Angel on 12/27/21 10:11 Coding Level of Care Code OB Routine Diagnoses Z3A.39 Weeks of gestation: 39 weeks Supervision of other normal Z34.80 HPV test positive Rh negative state in antepartum period O09.899; Z67.91 Allergy-induced asthma J45.20 Asthma complication type: uncomplicated Asthma persistence: intermittent Asthma severity: mild Active labor at term Assessment and Plan Assessment and Plan (1) : Status: Acute Qualifiers: Weeks of gestation: 39 weeks Qualified Code(s): Z3A.39 - 39 weeks gestation of Comment: declines carrier and genetic screen, declined ntd screen. anatomy us normal. GBS neg (2) Supervision of other normal : Status: Acute Comment: PRR MOO 12/30/21 girl PC: Salvador. Spouse: Sang (3) HPV test positive: Status: Acute Comment: neg pap + HPV; needs repeat pap in 1 year (4) Rh negative state in antepartum period: Status: Acute Comment: rhogam PRN and at 28 weeks. Given 10/11 (5) Allergy-induced asthma: Status: Acute Qualifiers: Asthma complication type: uncomplicated Asthma persistence: intermittent Asthma severity: mild Qualified Code(s): J45.20 - Mild intermittent asthma, uncomplicated Comment: flovent and albuterol PRN, singulair. (6) Active labor at term: Status: Acute Comment: exp management, epidural, arom PRN Plan Details Other Orders: Orders: POC Urinalysis 2 Dip (Clinic) Today UPDATE- I have seen the patient and performed any clinically relevant updates to the history and physical exam. Zaria Sampson MD
--- NOTE | 2021-12-27 14:17 | OP.PCM_ITS ---
Assessment & Plan (1) Active labor at term: COMMENT: exp management, epidural, arom PRN (2) Rh negative state in antepartum period: COMMENT: rhogam PRN and at 28 weeks. Given 10/11 (3) Allergy-induced asthma: QUALIFIERS: Asthma severity: mild Asthma persistence: intermittent Asthma complication type: uncomplicated Qualified Code(s): J45.20 - Mild intermittent asthma, uncomplicated COMMENT: flovent and albuterol PRN, singulair. (4) HPV test positive: COMMENT: neg pap + HPV; needs repeat pap in 1 year (5) Supervision of other normal : COMMENT: PRR MOO 12/30/21 girl PC: Salvador. Spouse: Sang (6) : QUALIFIERS: Weeks of gestation: 39 weeks Qualified Code(s): Z3A.39 - 39 weeks gestation of COMMENT: declines carrier and genetic screen, declined ntd screen. anatomy us normal. GBS neg (7) Vaginal delivery: COMMENT: 39 SM IAL girl Gemma Maternal Data Information MOO Calculator Estimated Delivery Date Method Current WG Current Estimate 12/30/21 LMP (Certain) 39w 4d Vaginal Delivery Operative Information Date of Procedure: 12/27/21 Pre-Operative Diagnosis: IAL Post-Operative Diagnosis: same Surgery / Procedure Performed: Spontaneous Vaginal Delivery Type of Anesthesia: Epidural Special Medications: none Estimated Blood Loss: 100 Fluids Replaced: crystalloid Findings Description of Procedure: Patient began pushing and delivered the head in the MELVI presentation. The head was delivered atraumatically and a loose nuchal cord ?1 was identified and the delivered through without complication. The anterior and posterior shoulders delivered without complication followed by the rest of the infant and the infant was placed on the maternal abdomen. Delayed cord clamping was employed for approximately 60 seconds. Cord was clamped and cut and gentle traction was applied to the cord and the placenta delivered spontaneously immediately following it was noted to be intact with three-vessel cord. The perineum and vagina were inspected and noted to have no laceration. EBL was 100 cc. Patient and tolerated delivery well. Presentation: MELVI Amniotic Membrane Rupture Type: Artificial Amniotic Fluid Description: Clear Placental Delivery Description: Spontaneous Placenta Disposition: [facility] Cord Vessel Description: 3 Vessels Cord Entanglement: None Delayed Cord Clamping: Yes Post Vaginal Delivery Medications Given After Delivery: IV Pitocin Episiotomy Description: None Laceration: None Complication Complications: None Procedures Urinary/Genital [id number]: [id number] Vaginal Delivery [facility]
--- NOTE | 2021-12-27 14:25 | PCM.DC ---
Discharge Instructions Diet Discharge Diet: No restrictions Activity Discharge Activity: Return to Normal Activity, May Not Drive (while taking narcotic pain medications.) and May Shower May resume sexual activity in: 4-6 weeks Dressing / Incision Call your doctor if your incision/area has: Continuous Slow Oozing, Sudden Increased Bleeding, Increased Pain/ Swelling, Increased Redness and Foul Smelling Discharge Follow Up Care Please Follow Up With: Zaria Sampson MD When: Call [phone] to make an appointment with your doctor in 6 weeks. If you had elevated blood pressure or 4th degree laceration, you will need to be seen in 2 weeks. Test Results: Test results from this visit will be discussed in further detail at your follow-up appointment, if applicable. Discharge Plan Admission Admit Date/Time: 12/27/21 11:15 Primary Reason for Your Visit: vaginal delivery Attending Provider: Zraia Sampson Primary Care Provider: Vivek James Discharge Orders/Prescriptions Prescriptions: No Action triamcinolone acetonide [Nasacort] 55 mcg aerosol,spray 1 spray intranasal DAILY RF: 0 prenat.vits,jarret,[id number] Tablet 1 tab PO DAILY RF: 0 albuterol sulfate 90 mcg/actuation aerosol powdr breath activated 2 inh inhalation Q6H PRNRF: 0 Flovent HFA 110 mcg/actuation HFA aerosol inhaler 2 puff inhalation BID Qty: 12 RF: 8 famotidine [Pepcid] 20 mg tablet 20 mg PO DAILY Qty: 30 RF: 6 Referrals / Follow Up: Vivek James DO [Primary Care Provider] - Disposition Disposition (needs filled in before D/C Order can be placed): Home, Self Care
[2021-12-27] MEDS: Naproxen 500 MG Tablet PO (20:50)
[2021-12-28 00:09] VITALS: BP 126/66; PULSE 90; RESP 16; TEMP 36.3
[2021-12-28 04:27] VITALS: BP 119/70; PULSE 82; RESP 15; TEMP 36
[2021-12-28 08:40] VITALS: BP 124/77; PULSE 60; RESP 15; TEMP 36.1
[2021-12-28 11:53] VITALS: BP 114/56; PULSE 62; RESP 15; TEMP 37.3
--- NOTE | 2021-12-28 13:11 | PCM.PN.OB ---
Subjective Subjective Patient doing well without complaints. Tolerating PO. Ambulating and voiding without difficulty. Feeding well. Denies chest pain, shortness of breath, calf pain/swelling, fevers, chills, lightheadedness. pt states that she is ready to go home today. Objective Data Objective Data Vital Signs: Vital Signs Temp Pulse Resp BP Pulse Ox 99.1 F 62 15 114/56 L 100 12/28/21 11:53 12/28/21 11:53 12/28/21 11:53 12/28/21 11:53 12/27/21 13:22 Oxygen Delivery Method Room Air Weight: 196 lb 6.91 oz Body Mass Index (BMI) 29.8 Intake & Output: Intake and Output for Last 24 Hours 12/26/21 12/27/21 12/28/21 23:59 23:59 23:59 Intake Total 1279.17 / 1279.17 Output Total 1250 / 1250 Balance 29.17 / 29.17 Lab / Micro Data Result Diagrams: 12/27/21 11:40 Labs: Laboratory Results - last 24 hr 12/27/21 11:40: Blood Type O NEGATIVE, Antibody Screen NEGATIVE Micro: Microbiology 12/27/21 11:40 Nasal Secretion SARS-CoV-2 Antigen (Rapid) - Final ROS Constitutional Constitutional: Denies chills, fatigue, fever(s), poor appetite or weakness Eyes Eyes: Denies blurry vision, change in vision, seeing flashes or spots in vision ENT HEENT: Denies dizziness, headache(s), loss taste/smell or sore throat Cardiovascular Cardiovascular: Denies chest pain, dizziness, dyspnea, irregular heart rhythm, palpitations or rapid heart rate Respiratory/Chest Respiratory/Chest: Denies chest tightness, cough, dyspnea or breast pain Gastrointestinal Gastrointestinal: Denies abdominal pain, constipation or vomiting Genitourinary Genitourinary: Denies dysuria or flank pain Musculoskeletal Musculoskeletal: Denies difficulty walking, joint pain, limited range of motion or numbness Neurologic Neurologic: Denies abnormal movements, abnormal speech, dizziness, numbness, seizure-like activity or syncope Psychiatric Psychiatric: Denies anxiety, behavioral changes, change in appetite, confusion, depression or suicidal thoughts Physical Exam Const alert, oriented x3 and no apparent distress General Appearance: cooperative and comfortable Resp normal respiratory effort Cardio regular rate GI normal to inspection, nondistended, normoactive bowel sounds GI Narrative: uterus is firm below umbilicus Palpation: soft Bimanual Exam - Adnexa, Other: Negative for cul-de-sac fullness Back/Spine no CVA tenderness and thoraco-lumbar ROM normal Extremity normal to inspection, no clubbing, cyanosis or edema, no calf tenderness and no pedal edema Psych mental status grossly normal, thought process normal, cooperative, affect normal, speech normal, activity/motor behavior normal, denies homicidal ideation and denies suicidal ideation Assessment & Plan (1) Vaginal delivery: COMMENT: 39 SM IAL girl Gemma PLAN: s/p PPD # 1 1. routine post delivery care 2. breast feeding- support given 3. rh positive 4. rubella immune 5. discharge to home later today
== END 2021-12-28 15:15 | disposition home or self-care (01) | DRG 806 ==
PROVIDERS: Admitting Provider Obstetrics & Gynecology; PCP Student in an Organized Health Care Education/Training Program; Visit Provider Obstetrics & Gynecology
DX: O26.893 Other specified pregnancy related conditions, third trimester (principal); Z37.0 Single live birth; O98.52 Other viral diseases complicating childbirth; J45.20 Mild intermittent asthma, uncomplicated; Z67.41 Type O blood, Rh negative; O99.52 Diseases of the respiratory system complicating childbirth; R87.810 Cervical high risk human papillomavirus (HPV) DNA test positive; O69.81X0 Labor and delivery complicated by cord around neck, without compression, not applicable or unspecified; Z3A.39 39 weeks gestation of pregnancy; Z79.51 Long term (current) use of inhaled steroids
CPT/HCPCS: 59025; 59050; 85025; 86850; 86900; 86901; 87426; 99218; J7120; G0378

== ENCOUNTER → 2025-04-01 | Outpatient (CLI) | payer OTHER, SELFPAY ==
[2025-04-07 00:07] LABS: HPV APTIMA, High Risk Positive (Negative); HPV Genotype 16, Aptima Negative (Negative); HPV Genotype 18,45 Aptima Negative (Negative)
== END | disposition home or self-care (01) ==
LOC: LABSPEC 15:14
PROVIDERS: PCP Student in an Organized Health Care Education/Training Program; Visit Provider Obstetrics & Gynecology
DX: Z12.4 Encounter for screening for malignant neoplasm of cervix (principal)
CPT/HCPCS: 87624; 88175; G0145